=== PATIENT | male | born 1965 | race American Indian/Alaskan Native ===

== ENCOUNTER 2019-07-07 19:41 | Emergency (ER) | payer OTHER ==
[2019-07-07] MEDS ORDERED: LIDOCAINE (1%) 10 MG/1 ML VIAL 20 ML MDV INFILTRATI ONE (22:07)
[2019-07-07] MEDS ORDERED: cloNIDine 0.2 MG TAB PO ONE (22:08)
--- NOTE | 2019-07-07 22:23 | Emergency Department Report ---
HPI - General Chief Complaint: Wound/Laceration Time Seen by Provider: 07/07/19 22:01 - HPI HPI: 53-year-old male presents to the emergency department with a complaint of a laceration and pain to the right pinky, in this [id number] individual, when it got slammed in a garage door that was not attached to the motor. Patient went to an urgent care and had an x-ray done but did not find out the results of the x-ray. They found the patient had extremely elevated blood pressure and sent him to the emergency department. The patient does have a history of hypertension for which he is on unnamed blood pressure medications but has been out for the past 2 weeks. He denies any headache, vision change, chest pain, shortness of breath. ED Past Medical Hx - Past Medical History Previous Medical History?: Yes Hx Hypertension: Yes - Surgical History Past Surgical History?: Yes Additional Surgical History: back and neck. left eye. right ankle. right leg. - Social History Smoking Status: Never Smoker Substance Use Type: None - Medications Home Medications: Home Medications Medication Instructions Recorded Confirmed Last Taken Type Sulfamethoxazole/Trimethoprim 1 each PO BID #14 tablet 07/08/19 Unknown Rx [Bactrim DS TAB] amLODIPine 10 mg PO DAILY #30 tab 07/08/19 Unknown Rx ED Review of Systems ROS: Stated complaint: LACERATION TO RIGHT PINKY FINGER Other details as noted in HPI Comment: All other systems reviewed and negative Constitutional: denies: chills, fever Eyes: denies: eye pain, vision change Respiratory: denies: shortness of breath Cardiovascular: denies: chest pain, palpitations Gastrointestinal: denies: abdominal pain, vomiting Musculoskeletal: arthralgia. denies: back pain Skin: other (laceration). denies: rash Physical Exam - Physical Exam Vital Signs: Vital Signs 07/07/19 07/07/19 07/07/19 19:53 22:13 22:19 Temperature 98.4 F 98.0 F Pulse Rate 58 L 62 62 Respiratory 18 18 Rate Blood Pressure 209/106 212/108 Blood Pressure 212/108 [Right] O2 Sat by Pulse 97 98 Oximetry Physical Exam: GENERAL: The patient is well-developed well-nourished. HENT: Normocephalic. Atraumatic. Patient has moist mucous membranes. EYES: Extraocular motions are intact. NECK: Supple. Trachea is midline. CHEST/LUNGS: Clear to auscultation. There is no respiratory distress noted. HEART/CARDIOVASCULAR: Regular. There is no tachycardia. There is no murmur. ABDOMEN: Abdomen is soft, nontender. Patient has normal bowel sounds. SKIN: Skin is warm and dry. There is a 2 cm laceration to the volar distal right pinky finger. NEURO: The patient is awake, alert, and oriented. The patient is cooperative. The patient has no focal neurologic deficits. Normal speech. MUSCULOSKELETAL: There is tenderness to palpation to the distal right pinky finger where the patient has a laceration. Capillary refill less than 2 seconds. Radial pulse +2/4 to the affected right hand/wrist. ED Course Vital Signs 07/07/19 07/07/19 07/07/19 19:53 22:13 22:19 Temperature 98.4 F 98.0 F Pulse Rate 58 L 62 62 Respiratory 18 18 Rate Blood Pressure 209/106 212/108 Blood Pressure 212/108 [Right] O2 Sat by Pulse 97 98 Oximetry - Laceration /Wound Repair Right Hand Wound Location: upper extremity (Right volar distal pinky finger) Wound Length (cm): 2 Wound's Depth, Shape: linear Wound Explored: no foreign body removed Irrigated w/ Saline (ccs): 50 Anesthesia: 1% Lidocaine Volume Anesthetic (ccs): 7 (Digital Block) Wound Repaired With: sutures Suture Size/Type: 5:0, proline Number of Sutures: 8 (1 horizontal mattress, 7 simple interrupted) Sterile Dressing Applied?: Yes - Nerve Block Consent Obtained: verbal consent Time Out Performed: Yes Local Anesthetic Used: Lidocaine 1% Amount of anesthesia used: 7 Side: right Nerve Blocks: digital (pinky) Procedure Successful: Yes Complications: none Patient Tolerated Procedure: well ED Medical Decision Making - Radiology Data Radiology results: image reviewed interpreted by me: X-ray of the right pinky finger shows a tuft fracture. - Medical Decision Making Patient presents with a laceration to the right pinky finger after a garage door came down on it. X-ray of the finger shows a tuft fracture. No foreign bodies seen. Patient was given a digital block with successful anesthesia of the pinky finger. The laceration was repaired as per the procedure section. He was placed in a splint with sterile dressing. He will follow-up with an orthopedist and has been given a prescription for antibiotics. Patient also presented with elevated blood pressure after being out of his medications for the past 2 weeks. He was given some Catapres here with some improvement of his blood pressure. We discussed keeping a blood pressure log. We discussed dietary changes and the patient has been given a prescription for amlodipine. Critical Care Time: No Critical care attestation.: If time is entered above; I have spent that time in minutes in the direct care of this critically ill patient, excluding procedure time. ED Disposition Clinical Impression: Closed fracture of tuft of distal phalanx of finger, Noncompliance with medication regimen Laceration of finger Qualifiers: Encounter type: initial encounter Finger: little finger Damage to nail status: without damage Foreign body presence: without foreign body Laterality: right Qualified Code(s): S61.216A - Laceration without foreign body of right little finger without damage to nail, initial encounter Hypertension Qualifiers: Hypertension type: essential hypertension Qualified Code(s): I10 - Essential (primary) hypertension Disposition: TO HOME OR SELFCARE Is pt being admited?: No Condition: Stable Instructions: Suture Care (ED), Finger Fracture (ED), Finger Laceration (ED), Hypertension (ED) Additional Instructions: Please remain in the splint until follow-up with an orthopedist. I am giving you a referral for a local orthopedist, Dr. Webster, to follow-up regarding the tuft fracture of your finger. You can clean the finger with soap and water but then make sure it remains dry afterwards. The sutures will need to be removed in about 7 days. Please monitor for any signs/symptoms of infection such as increased pain, increased swelling, surrounding redness, development of fever, or discharge of pus. Take the antibiotics as prescribed. I am also prescribing you a blood pressure medication called Norvasc/amlodipine. This medication is taken once per day, usually in the morning. Try to stay away from foods that are high in salt and caffeinated products. Keep a blood pressure log. Return to the emergency department with any worsening of your symptoms or any acute distress. Prescriptions: amLODIPine 10 mg PO DAILY #30 tab Sulfamethoxazole/Trimethoprim [Bactrim DS TAB] 1 each PO BID #14 tablet Referrals: THANIA SCOTT MD [Primary Care Provider] - 3-5 Days ALONSO WEBSTER MD [Staff Physician] - 3-5 Days [facility] [Provider Group] - 3-5 Days Time of Disposition: 00:03
--- NOTE | 2019-07-07 23:05 | XRay Report ---
Right fingers 3 views INDICATION: Right finger pain following injury IMPRESSION: Large laceration overlying the left little finger. There is fracture lucency through the distal tuft of the fifth finger distal phalanx. Signer Name: Efrain Tena MD Signed: 07/07/2019 11:00 PM Workstation Name: [id number]
[2019-07-07 23:32] VITALS: BP 191/106
[2019-07-07] MEDS ORDERED: SULFAMETHOXAZOLE/TRIMETHOPRIM 800/160MG DS TAB PO ONE (23:37)
== END 2019-07-08 00:39 | disposition home or self-care (01) ==
LOC: ED 19:41
DX: S62.636A Displaced fracture of distal phalanx of right little finger, initial encounter for closed fracture (principal); S61.216A Laceration without foreign body of right little finger without damage to nail, initial encounter; I10 Essential (primary) hypertension; Z91.14 Patient's other noncompliance with medication regimen; Z98.890 Other specified postprocedural states; Z79.899 Other long term (current) drug therapy; X58.XXXA Exposure to other specified factors, initial encounter; Y93.89 Activity, other specified; Y92.59 Other trade areas as the place of occurrence of the external cause; Y99.8 Other external cause status